=== PATIENT | female | born 1975 | race Two or more races ===

== ENCOUNTER 2018-04-13 09:20 | Day surgery (SDC) | payer OTHER ==
[~2018-04-13] VITALS: Ht 157.5 cm; Wt 79.4 kg
--- NOTE | ~2018-04-13 | OP ---
PATIENT NAME: ABDIAZIZ SPANN MEDICAL RECORD: [id number] :73 LOCATION:[facility] ADMISSION DATE: SURGEON: JULITA CABRERA MD DATE OF OPERATION: 04/13/2018 PREOPERATIVE DIAGNOSIS: Painful protruding varicose veins, right lower extremity with other complications, I83.89. POSTOPERATIVE DIAGNOSIS: Painful protruding varicose veins, right lower extremity with other complications, I83.89. OPERATION PERFORMED: Ambulatory stab phlebectomy with 21 stab incisions in the right lower extremity. SURGEON: Julita Cabrera MD ANESTHESIA: General endotracheal per PROCESS STEWARD. REFERRING PHYSICIAN: The patient is self-referred. PRIMARY CARE PHYSICIAN: Dr. Brooks of [place], [place]. 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 She has not had relief with conservative measures including compression stockings. Ultrasound revealed no truncal venous reflux. She had similar findings on the left and underwent a left lower extremity ambulatory phlebectomy procedure under local in my office, which was unpleasant for her and she did not tolerate it well. Although, she did not have much pain during the procedure, she just could not tolerate it. So today, she is brought to the operating room into hospital as an outpatient to have the right side done in a similar manner, DESCRIPTION OF PROCEDURE: The patient's skin was marked with indelible marker over the larger protruding veins on the thigh and calf and knee, particularly in the popliteal space and she was then given general endotracheal anesthetic and placed in first prone position. She was prepped and draped in sterile manner. Tumescent local anesthetic 50 cc of 1% lidocaine with epinephrine and 5 cc of bicarbonate and 1000 cc of saline. Tumescent anesthesia was infiltrated with a spinal needle and then stab incisions were made and blunt dissection used to isolate and tease and remove the larger varicosities. Bleeding was controlled with direct pressure. The incisions were then closed with interrupted simple 4-0 Prolene sutures and sterile dressings were applied and the patient was then exposed and turned into a supine position and then reprepped and redraped and additional phlebectomies on the anterior thigh and medial knee area were performed. A total of 21 stab incisions were made. Several large pieces of vein were removed and I felt that a thorough procedure had been done. Hemostasis again was obtained with the patient in Trendelenburg position and with direct pressure. The stab sites were sutured with 4-0 Prolene and again sterile dressings were applied. The patient was then placed in her thigh high 20-30 compression stocking and a Coban elastic compression tape was applied over that. The patient was then awakened and extubated and taken to the recovery room. Blood loss during the procedure was about 25 cc and was unreplaced of course. OPERATIVE REPORT [id number] ABDIAZIZ SPANN All sponges, instruments and needles were accounted for. I did not send any specimens for histopathology. The patient will be discharged to home today. She is instructed as last time to wear her stocking 11/05 until she comes back to see me in the office tomorrow. Tomorrow, she may remove the stocking and remove her dressings and then take a shower and wash the incision sites with soap and water and then without necessarily reapplying any bandages, she is to re-down the stocking and she is to continue wearing the stocking as I said 11/05, even sleeping in it until I see her back in the office. She may of course do this and shower daily. She is advised to take Tylenol or ibuprofen p.r.n. for pain and to use ice off and on over the treated areas on her thigh and leg to diminish swelling and discomfort. When I do see her back in my office, we will discuss further sclerotherapy of remaining painful veins which may have escaped removal today or last week for the other leg. TRANSINT:[id number] Voice Confirmation ID: [id number] DOCUMENT ID: [id number] CC: Dr. Brooks in [place], [place], physician not located. 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 04/13/18 [facility] [address] [place] [address]
[2018-04-13 09:46] LABS: BASOPHILS 0.6 % (0-2); EOSINOPHILS 3.6 % (0-7); HEMOGLOBIN 9.1 g/dL (12-16); IMMATURE GRANULOCYTES 0.3 % (0-5); LYMPHOCYTES 31.6 % (15-50); MCHC 30.3 g/dL (31.0-37.0); MCV 75.9 fL (80.0-100.0); MEAN PLATELET VOLUME 8.5 fL (7.4-10.4); MONOCYTES 6.8 % (2-11); NEUTROPHILS 57.1 % (40-80); PLATELET COUNT 344 10x3/uL (130-400); RBC 3.95 10x6/uL (4.00-5.40); RDW 16.6 % (11.5-14.5); WBC 6.9 10x3/uL (4.8-10.8)
[2018-04-13 09:56] LABS: CALC OSMOLALITY 278 mosm/kg (275-300); CARBON DIOXIDE 30.2 mmol/L (21.0-32.0); CHLORIDE - SERUM 104 mmol/L (98-107); CREATININE - SERUM 0.7 mg/dL (0.6-1.3); GLUCOSE 91 mg/dL (74-106); POTASSIUM - SERUM 3.5 mmol/L (3.5-5.1); SODIUM 140 mmol/L (136-145); UREA NITROGEN 13 mg/dL (7-18); eGFR NON AFRICAN AMERICAN > 90 mL/min (90-120)
[2018-04-13 10:00] LABS: APTT 31.3 SECONDS (22.8-39.4); INR 0.97 (0.85-1.17); PROTIME 12.5 SECONDS (11.6-15.0)
[2018-04-13 11:56] VITALS: BP 129/84; Ht 157.5 cm; Wt 79.4 kg
== END 2018-04-13 17:20 | disposition home or self-care (01) ==
LOC: D.OPS 09:20
PROVIDERS: Surgery
DX: I83.811 Varicose veins of right lower extremity with pain (principal); Z01.812 Encounter for preprocedural laboratory examination